=== PATIENT | female | born 1935 | race Caucasian/White ===

== ENCOUNTER 2016-09-26 22:50 | Emergency (ER) | payer MEDICARE, OTHER ==
[~2016-09-26] VITALS: Ht 160 cm; Wt 62.0 kg
[~2016-09-26 22:50] MED LIST: ACIDCAP17 PO; ASPI1TAB7 PO; B COTAB3 PO; BIOT5000 PO; CALC600T10; FOLI400T30 PO; MACR100C PO; TAB-TAB PO; ZOCO40TA PO
[2016-09-26 22:52] VITALS: BP 120/59; PULSE 84; RESP 18; TEMP 99.2; O2SAT 99
--- NOTE | 2016-09-26 23:05 | PD ---
Physical Exam Date Seen by Provider: Sep 26, 2016 Time Seen by Provider: 23:03 Data Data Last Documented VS Vital Signs Date Time Temp Pulse Resp B/P Pulse Ox O2 Delivery O2 Flow Rate FiO2 09/26/16 22:52 99.2 84 18 120/59 99 Room Air [facility] Supervised Visit with ARLENE: No Narrative Course 81 YO F with complaint of bilateral ankle pain. Onset after mechanical fall this afternoon. Patient endorses minimal weightbearing and ambulation since. Vitals reviewed. Patient seen in triage. Awaiting bed placement. Aurora Palacios Sep 26, 2016 23:05
[2016-09-26] MEDS ORDERED: CYAN25002 PO (23:32)
[2016-09-26] MEDS ORDERED: OCUVCAP PO (23:32)
[2016-09-26] MEDS ORDERED: FOLI400T PO (23:32)
[2016-09-26] MEDS ORDERED: CHEL50TA PO (23:32)
[2016-09-26] MEDS ORDERED: MAGN400T24 PO (23:32)
[2016-09-26] MEDS ORDERED: D32000TA PO (23:32)
[2016-09-26] MEDS ORDERED: PROB1CAP12 PO (23:32)
[2016-09-26] MEDS ORDERED: ZOCO40TA PO (23:32)
[2016-09-26] MEDS ORDERED: CALC600T25 PO (23:32)
[2016-09-26] MEDS ORDERED: BIOT50006 PO (23:32)
[2016-09-26] MEDS ORDERED: ASPI81CH CHEW (23:32)
[2016-09-26 23:36] VITALS: BP 129/61; PULSE 81; RESP 16; O2SAT 99
--- NOTE | 2016-09-27 01:21 | RADRPT ---
EXAM DATE/TIME: 09/27/2016 01:08 [facility] COMPARISON: No previous studies available for comparison. INDICATIONS : Pt fell tonight- unable to bear weight to bilateral legs. MEDICAL HISTORY : None. SURGICAL HISTORY : None. ENCOUNTER: Initial ACUITY: 1 day PAIN SCORE: 7/10 LOCATION: Right ankle FINDINGS: 3 views of the right ankle. Diffuse bone demineralization. Small osteophytes at the medial and latera l malleoli. No evidence of fracture. Large plantar calcaneal spur. Small osteophytes at the dorsal as pect of the talonavicular joint. CONCLUSION: Mild arthritic findings of the ankle. Diffuse bone demineralization. No evidence of f racture. Sebastien Buckley MD on September 27, 2016 at 1:12 Board Certified Radiologist. This report was verified electronically.
--- NOTE | 2016-09-27 01:37 | RADRPT ---
EXAM DATE/TIME: 09/27/2016 01:08 [facility] COMPARISON: No previous studies available for comparison. INDICATIONS : Pt fell tonight- unable to bear weight to bilateral legs. MEDICAL HISTORY : None. SURGICAL HISTORY : None. ENCOUNTER: Initial ACUITY: 1 day PAIN SCORE: 7/10 LOCATION: Left ankle FINDINGS: 3 views of the left ankle. Bone alignment within normal limits. No evidence of fracture. Minimal ost eophytes at the medial and lateral malleoli. CONCLUSION: No evidence of fracture. Sebastien Buckley MD on September 27, 2016 at 1:33 Board Certified Radiologist. This report was verified electronically.
--- NOTE | 2016-09-27 01:50 | RADRPT ---
EXAM DATE/TIME: 09/27/2016 01:26 [facility] COMPARISON: No previous studies available for comparison. INDICATIONS : Pt fell tonight- unable to bear weight. MEDICAL HISTORY : None. SURGICAL HISTORY : None. ENCOUNTER: Initial ACUITY: 1 day PAIN SCORE: 8/10 LOCATION: Left Foot FINDINGS: 3 views left foot. Bone alignment within normal limits. No evidence of fracture. Moderate size osteo phytes at the great toe metatarsophalangeal joint. Small plantar calcaneal spur. CONCLUSION: No evidence of fracture. Sebastien Buckley MD on September 27, 2016 at 1:44 Board Certified Radiologist. This report was verified electronically.
[2016-09-27] MEDS ORDERED: ACETAMINOPHEN 325 MG TAB PO ONE (02:00)
--- NOTE | 2016-09-27 02:04 | PD ---
HPI Chief Complaint: Fall Time Seen by Provider: 00:50 Travel History International Travel<30 days: No Contact w/Intl Traveler<30days: No Traveled to known affect area: No History of Present Illness HPI 81-year-old female presents to the emergency department by EMS transport from home after falling while getting out of her bed around 5 PM on Wednesday afternoon. Patient states she had taken a nap and as she got up out of bed her right foot was numb and that she went to put weight on that her foot gave way causing her to lose her balance and fall and she subsequently injured her left ankle at the same time. Patient states she was able to get back into bed her applied ice and due to ongoing pain she decided to have EMS transported to the emergency room for evaluation. Patient denies any other injury. No prior injury of the ankles or feet. Patient states she did not hit her head did not have loss of consciousness did not injure her neck back chest ribs abdomen pelvis or other extremity. Patient states that she has swelling of both ankles and is convinced that she broke both of her ankles. Patient takes no blood thinning agent. PFSH Past Medical History Narrative Medical TIA arthritis dyslipidemia hypertension peripheral neuropathy; tubal ligation cholecystectomy appendectomy tonsillectomy knee surgery; no tobacco use and: Nursing notes reviewed Hx Anticoagulant Therapy: No Arthritis: Yes Anxiety: No Depression: Yes Cancer: No Cardiovascular Problems: No High Cholesterol: Yes Cerebrovascular Accident: Yes (TIA) Diabetes: No Diminished Hearing: No Endocrine: No Glaucoma: No Genitourinary: No Hepatitis: No Hiatal Hernia: No Hypertension: No Immune Disorder: No Implanted Vascular Access Dvce: Yes Musculoskeletal: No Neurologic: No Psychiatric: Yes (nervous breakdown) Reproductive: No Respiratory: No Immunizations Current: Yes Thyroid Disease: No Tetanus Vaccination: < 5 Years ?: Not Menopausal: Yes Tubal Ligation: Yes Past Surgical History Abdominal Surgery: Yes Appendectomy: Yes Arteriovenous Shunt: No Cardiac Surgery: No Cholecystectomy: Yes Ear Surgery: No Endocrine Surgery: No Eye Surgery: Yes (cataract) Genitourinary Surgery: Yes (BLADDER AND UTERINE SUSPENSION) Gynecologic Surgery: Yes (4 children living) Insulin Pump: No Joint Replacement: Yes (knee replacement) Oral Surgery: No Pacemaker: No Thoracic Surgery: Yes (tonsils) Tonsillectomy: Yes Other Surgery: Yes (ton) Social History Alcohol Use: Yes (VERY RARE) Tobacco Use: No Substance Use: No Allergies-Medications (Allergen,Severity, Reaction): Coded Allergies: No Known Allergies (Verified , 09/26/16) Reported Meds & Prescriptions Reported Meds & Active Scripts Active Macrobid (Nitrofurantoin Macrocrystals) 100 Mg Cap 100 Mg PO BID 7 Days Review of Systems Except as stated in HPI: all other systems reviewed are Neg General / Constitutional: No: Fever, Chills HENT: No: Congestion Cardiovascular: No: Chest Pain or Discomfort Respiratory: No: Shortness of Breath Genitourinary: No: Dysuria Musculoskeletal: Positive: Myalgias, Arthralgias, Pain (bilateral ankle pain and left foot pain) Skin: No Rash Neurologic: No: Weakness Psychiatric: No: Anxiety Endocrine: No: Heat Intolerance Hematologic/Lymphatic: No: Easy Bruising Physical Exam Narrative GENERAL: Well-developed well-nourished female in no acute distress no respiratory distress SKIN: Warm and dry. HEAD: Normocephalic. EYES: No scleral icterus. No injection or drainage. NECK: Supple, trachea midline. No JVD or lymphadenopathy. CARDIOVASCULAR: Regular rate and rhythm without murmurs, gallops, or rubs. RESPIRATORY: Breath sounds equal bilaterally. No accessory muscle use. GASTROINTESTINAL: Abdomen soft, non-tender, nondistended. MUSCULOSKELETAL: No cyanosis, or edema. Bilateral mild ankle edema with mild tenderness to direct palpation of the mouth lateral malleoli bilaterally dorsalis pedis pulses 2+ to palpation capillary refill brisk and less than 2 seconds per digit no deformity or point tenderness other than aforementioned. Bilateral lower legs the hip demonstrate intact range of motion. BACK: Nontender without obvious deformity. No CVA tenderness. Data Data Last Documented VS Vital Signs Date Time Temp Pulse Resp B/P Pulse Ox O2 Delivery O2 Flow Rate FiO2 09/26/16 23:36 81 16 129/61 99 Room Air 09/26/16 22:52 99.2 Orders Ankle, Complete ([id number]) (09/27/16 ) Ankle, Complete ([id number]) (09/27/16 ) Foot, Complete ([id number]) (09/27/16 ) [facility] Medical Decision Making Medical Screen Exam Complete: Yes Emergency Medical Condition: Yes Medical Record Reviewed: Yes Interpretation(s) Vital Signs Date Time Temp Pulse Resp B/P Pulse Ox O2 Delivery O2 Flow Rate FiO2 09/26/16 23:36 81 16 129/61 99 Room Air 09/26/16 22:52 99.2 84 18 120/59 99 Room Air Differential Diagnosis Sprain strain contusion fracture subluxation dislocation Narrative Course Imaging studies ordered Imaging of right ankle, left foot left ankle revealed no acute bony injury chronic changes are noted Padded Watson is applied patient is informed of imaging results in stable for outpatient management; Tylenol one dose administered Diagnosis Primary Impression: Right ankle sprain Qualified Code: S93.401A - Sprain of right ankle, unspecified ligament, initial encounter Additional Impression: Left ankle sprain Qualified Code: S93.402A - Sprain of left ankle, unspecified ligament, initial encounter Referrals: Primary Care Physician call for appointment Patient Instructions: General Instructions Additional Instructions: Elevate lower extremities Take as tolerated acetaminophen/Tylenol per package directions Use ice intermittently to areas of soft tissue swelling for first 12-24 hours May use Watson wrap or elastic ankle brace for support as needed Follow-up with your primary care provider Use walker to assist ambulation Return to the emergency department for any concerns or change in condition Med/Other Pt SpecificInfo: No Change to Meds Disposition: 01 DISCHARGE HOME Condition: Stable Mireya Stanton MD Sep 27, 2016 02:04
== END 2016-09-27 02:56 | disposition home or self-care (01) ==
LOC: NEPC 22:50
DX: S93.401A Sprain of unspecified ligament of right ankle, initial encounter (principal); S93.402A Sprain of unspecified ligament of left ankle, initial encounter; W06.XXXA Fall from bed, initial encounter
CPT/HCPCS: 73610; 73630; 99283

== ENCOUNTER 2017-04-23 08:43 | Emergency (ER) | payer MEDICARE, OTHER ==
[~2017-04-23] VITALS: Ht 160 cm; Wt 62.0 kg
[~2017-04-23 08:43] MED LIST changes: -ACIDCAP17 PO; +ASPI-516 CHEW; -ASPI1TAB7 PO; -B COTAB3 PO; -BIOT5000 PO; +BIOT50006 PO; -CALC600T10; +CALC600T5 PO; +CHEL50TA PO; +CYAN25002 PO; +D32000TA PO; +FOLI400T PO; -FOLI400T30 PO; -MACR100C PO; +MAGN400T24 PO; +OCUVCAP PO; +PROB1CAP12 PO; -TAB-TAB PO
[2017-04-23 08:47] VITALS: BP 133/62; PULSE 63; RESP 18; TEMP 97.8; O2SAT 100
[2017-04-23] MEDS ORDERED: SODIUM CHLOR 0.9% 1000 ML INJ 1,000 ML IV ONE (09:03)
--- NOTE | 2017-04-23 09:11 | PD ---
HPI Chief Complaint: Dizziness Time Seen by Provider: 08:54 Travel History International Travel<30 days: No Contact w/Intl Traveler<30days: No Traveled to known affect area: No History of Present Illness HPI The patient is a 81-year-old female who presents emergency department for dizziness and nausea. The patient states her symptoms started Wednesday night, then progressed on . The patient has a history of vertigo and does daily Chaitanya maneuvers, however, states the maneuvers have not helped with her vertigo. The patient states her normal vertigo was rotational like a clot, however, she now states that the rotation is changed axis is now spitting from worse to backwards. She does state it is worse with standing upright, and movement, but can occur at rest with positional changes. It does improve at rest, however, can occur with turning her head left or right. She denies any focal weakness of the upper or lower extremities. She does complain of mild nausea with the vertigo. She does have a history of previous TIA and CVA. She denies drifting to the left or right, however, states she's been unable to get out of bed and ambulate, must hold on objects when ambulating. PFSH Past Medical History Hx Anticoagulant Therapy: No Arthritis: Yes Anxiety: No Depression: Yes Cancer: No Cardiovascular Problems: No High Cholesterol: Yes Cerebrovascular Accident: Yes (TIA) Diabetes: No Diminished Hearing: No Endocrine: No Glaucoma: No Genitourinary: No Hepatitis: No Hiatal Hernia: No Hypertension: No Immune Disorder: No Implanted Vascular Access Dvce: Yes Medical other: Yes (ELEVATED CHOLESTEROL) Musculoskeletal: No Neurologic: No Psychiatric: Yes (nervous breakdown) Reproductive: No Respiratory: No Immunizations Current: Yes Thyroid Disease: No Tetanus Vaccination: < 5 Years Influenza Vaccination: Yes Menopausal: Yes Tubal Ligation: Yes Past Surgical History Abdominal Surgery: Yes Appendectomy: Yes Arteriovenous Shunt: No Cardiac Surgery: No Cholecystectomy: Yes Ear Surgery: No Endocrine Surgery: No Eye Surgery: Yes (cataract) Genitourinary Surgery: Yes (BLADDER AND UTERINE SUSPENSION) Gynecologic Surgery: Yes (4 children living) Insulin Pump: No Joint Replacement: Yes (knee replacement) Oral Surgery: No Pacemaker: No Thoracic Surgery: Yes (tonsils) Tonsillectomy: Yes Other Surgery: Yes (ton) Social History Alcohol Use: Yes (VERY RARE) Tobacco Use: No Substance Use: No Allergies-Medications (Allergen,Severity, Reaction): Coded Allergies: ciprofloxacin (Verified Allergy, Unknown, 04/23/17) nitrofurantoin (Verified Allergy, Unknown, 04/23/17) Reported Meds & Prescriptions Reported Meds & Active Scripts Active Reported Folic Acid 400 Mcg Tab 400 Mcg PO DAILY Zinc (Zinc Gluconate) 50 Mg Tab 1 Tab PO DAILY B-12 (Cyanocobalamin (Vitamin B-12)) 2,500 Mcg Tab.subl 1 Tab PO DAILY Magnesium (Magnesium Oxide) 400 Mg Tablet 250 Mcg PO DAILY Biotin 5,000 Mcg Tab.rapdis 1 Tab PO DAILY Ocuvite Lutein (Multiple Vitamins W/ Minerals) 1 Cap Cap 1 Tab PO DAILY Calcium (Calcium Carbonate) 600 Mg Tab 1 Tab PO DAILY D3 (Cholecalciferol) 2,000 Unit Tab 5,000 Units PO DAILY Acidophilus (Probiotic Product) 1 Cap Cap 240 Mcg PO DAILY Aspirin 81 Mg Chew 81 Mg CHEW DAILY Zocor (Simvastatin) 40 Mg Tab 40 Mg PO DAILY Review of Systems Except as stated in HPI: all other systems reviewed are Neg General / Constitutional: No: Fever Eyes: No: Blurred Vision HENT: Positive: Vertigo, Lightheadedness, No: Headaches Cardiovascular: No: Chest Pain or Discomfort Respiratory: No: Shortness of Breath Gastrointestinal: Positive: Nausea, No: Abdominal Pain Musculoskeletal: No: Weakness Neurologic: Positive: Dizziness, Ataxia (difficulty walking, must hold onto objects), No: Focal Abnormalities Physical Exam Narrative GENERAL: Awake, alert, pleasant 81-year-old female who appears her stated age and is in no acute respiratory distress. SKIN: Focused skin assessment warm/dry. HEAD: Atraumatic. Normocephalic. EYES: Pupils equal and round. 4 mm bilateral and reactive. EOMs are intact. No obvious nystagmus. ENT: No nasal bleeding or discharge. Mucous membranes pink and moist. NECK: Trachea midline. No JVD. CARDIOVASCULAR: Regular rate and rhythm. No murmur appreciated. RESPIRATORY: No accessory muscle use. Clear to auscultation. Breath sounds equal bilaterally. GASTROINTESTINAL: Abdomen soft, non-tender, nondistended. No rebound tenderness. MUSCULOSKELETAL: No obvious deformities. No clubbing. No cyanosis. No edema. NEUROLOGICAL: Awake and alert. No obvious cranial nerve deficits. Motor grossly within normal limits. Normal speech. Finger to nose is normal. Heel-to -bryson is normal. No drift of the upper or lower extremities. PSYCHIATRIC: Appropriate mood and affect; insight and judgment normal. Data Data Last Documented VS Vital Signs Date Time Temp Pulse Resp B/P (MAP) Pulse Ox O2 Delivery O2 Flow Rate FiO2 04/23/17 08:57 65 18 100 Room Air 04/23/17 08:47 97.8 133/62 (85) Orders Orders Electrocardiogram (04/23/17 09:03) Complete Blood Count With Diff (04/23/17 09:03) Comprehensive Metabolic Panel (04/23/17 09:03) Magnesium (Mg) (04/23/17 09:03) Ckmb (Isoenzyme) Profile (04/23/17 09:03) Urinalysis - C+S If Indicated (04/23/17 09:03) Ct Brain W/O Iv Contrast(Rout) (04/23/17 09:03) Ecg Monitoring (04/23/17 09:03) Iv Access Insert/Monitor (04/23/17 09:03) Oximetry (04/23/17 09:03) Meclizine (Antivert) (04/23/17 09:15) Ondansetron Inj (Zofran Inj) (04/23/17 09:15) Sodium Chloride 0.9% Flush (Ns Flush) (04/23/17 09:15) Sodium Chlor 0.9% 1000 Ml Inj (Ns 1000 M (04/23/17 09:03) Diazepam (Valium) (04/23/17 09:15) Mri Brain W/O Contrast (04/23/17 ) Ed Discharge Order (04/23/17 12:22) Labs Laboratory Tests Test 04/23/17 09:10 04/23/17 11:45 White Blood Count 7.3 TH/MM3 Red Blood Count 4.26 MIL/MM3 Hemoglobin 14.2 GM/DL Hematocrit 40.5 % Mean Corpuscular Volume 95.1 FL Mean Corpuscular Hemoglobin 33.3 PG Mean Corpuscular Hemoglobin Concent 35.0 % Red Cell Distribution Width 13.0 % Platelet Count 177 TH/MM3 Mean Platelet Volume 8.8 FL Neutrophils (%) (Auto) 59.0 % Lymphocytes (%) (Auto) 30.9 % Monocytes (%) (Auto) 8.4 % Eosinophils (%) (Auto) 1.2 % Basophils (%) (Auto) 0.5 % Neutrophils # (Auto) 4.3 TH/MM3 Lymphocytes # (Auto) 2.2 TH/MM3 Monocytes # (Auto) 0.6 TH/MM3 Eosinophils # (Auto) 0.1 TH/MM3 Basophils # (Auto) 0.0 TH/MM3 CBC Comment DIFF FINAL Differential Comment Blood Urea Nitrogen 15 MG/DL Creatinine 0.87 MG/DL Random Glucose 90 MG/DL Total Protein 7.7 GM/DL Albumin 3.8 GM/DL Calcium Level 9.2 MG/DL Magnesium Level 2.2 MG/DL Alkaline Phosphatase 63 U/L Aspartate Amino Transf (AST/SGOT) 29 U/L Alanine Aminotransferase (ALT/SGPT) 31 U/L Total Bilirubin 0.5 MG/DL Sodium Level 140 MEQ/L Potassium Level 3.9 MEQ/L Chloride Level 103 MEQ/L Carbon Dioxide Level 30.9 MEQ/L Anion Gap 6 MEQ/L Estimat Glomerular Filtration Rate 62 ML/MIN Total Creatine Kinase 91 U/L Urine Color LIGHT-YELLOW Urine Turbidity CLEAR Urine pH 6.5 Urine Specific [place] 1.006 Urine Protein NEG mg/dL Urine Glucose (UA) NEG mg/dL Urine Ketones TRACE mg/dL Urine Occult Blood NEG Urine Nitrite NEG Urine Bilirubin NEG Urine Urobilinogen LESS THAN 2.0 MG/DL Urine Leukocyte Esterase TRACE Urine RBC LESS THAN 1 /hpf Urine WBC 2 /hpf Urine Squamous Epithelial Cells 3 /hpf Urine Mucus FEW /lpf Microscopic Urinalysis Comment CULT NOT INDICATED MDM Medical Decision Making Medical Screen Exam Complete: Yes Emergency Medical Condition: Yes Medical Record Reviewed: Yes Interpretation(s) EKG reveals normal sinus rhythm with a rate of 63. No ischemic changes or ectopy noted. Last Impressions Head CT 04/23/17 0903 Signed Impressions: Service Date/Time: Sunday, April 23, 2017 09:09 - CONCLUSION: Moderate periventricular matter changes, negative for acute process. Maynor Keita MD FACR Brain MRI 04/23/17 0000 Signed Impressions: Service Date/Time: Sunday, April 23, 2017 10:37 - CONCLUSION: Moderate chronic appearing white matter signal changes. No evidence of acute intracranial process. Stan Pierson MD Laboratory Tests Test 04/23/17 09:10 04/23/17 11:45 White Blood Count 7.3 TH/MM3 Red Blood Count 4.26 MIL/MM3 Hemoglobin 14.2 GM/DL Hematocrit 40.5 % Mean Corpuscular Volume 95.1 FL Mean Corpuscular Hemoglobin 33.3 PG Mean Corpuscular Hemoglobin Concent 35.0 % Red Cell Distribution Width 13.0 % Platelet Count 177 TH/MM3 Mean Platelet Volume 8.8 FL Neutrophils (%) (Auto) 59.0 % Lymphocytes (%) (Auto) 30.9 % Monocytes (%) (Auto) 8.4 % Eosinophils (%) (Auto) 1.2 % Basophils (%) (Auto) 0.5 % Neutrophils # (Auto) 4.3 TH/MM3 Lymphocytes # (Auto) 2.2 TH/MM3 Monocytes # (Auto) 0.6 TH/MM3 Eosinophils # (Auto) 0.1 TH/MM3 Basophils # (Auto) 0.0 TH/MM3 CBC Comment DIFF FINAL Differential Comment Blood Urea Nitrogen 15 MG/DL Creatinine 0.87 MG/DL Random Glucose 90 MG/DL Total Protein 7.7 GM/DL Albumin 3.8 GM/DL Calcium Level 9.2 MG/DL Magnesium Level 2.2 MG/DL Alkaline Phosphatase 63 U/L Aspartate Amino Transf (AST/SGOT) 29 U/L Alanine Aminotransferase (ALT/SGPT) 31 U/L Total Bilirubin 0.5 MG/DL Sodium Level 140 MEQ/L Potassium Level 3.9 MEQ/L Chloride Level 103 MEQ/L Carbon Dioxide Level 30.9 MEQ/L Anion Gap 6 MEQ/L Estimat Glomerular Filtration Rate 62 ML/MIN Total Creatine Kinase 91 U/L Urine Color LIGHT-YELLOW Urine Turbidity CLEAR Urine pH 6.5 Urine Specific [place] 1.006 Urine Protein NEG mg/dL Urine Glucose (UA) NEG mg/dL Urine Ketones TRACE mg/dL Urine Occult Blood NEG Urine Nitrite NEG Urine Bilirubin NEG Urine Urobilinogen LESS THAN 2.0 MG/DL Urine Leukocyte Esterase TRACE Urine RBC LESS THAN 1 /hpf Urine WBC 2 /hpf Urine Squamous Epithelial Cells 3 /hpf Urine Mucus FEW /lpf Microscopic Urinalysis Comment CULT NOT INDICATED Differential Diagnosis Differential diagnosis includes vertigo, hyponatremia, CVA, TIA, intracranial hemorrhage, cerebellar infarct. Narrative Course IV was established, labs are drawn and sent, and the patient was placed on cardiac telemetry monitoring and continuous pulse oximetry monitoring. EKG was ordered and interpreted. CT the brain was ordered to rule out intracranial hemorrhage. MRI of the brain was ordered to evaluate for possible cerebellar infarct. CT the brain was unremarkable. Laboratory evaluation was unremarkable. MRI reveals chronic white matter changes, but no acute infarct. The patient was reevaluated at 12:15 PM, her vertigo has significantly improved with meclizine and Valium. I do discussion with the patient regarding discharge home versus staying, she feels well enough to go home. She will be discharged with her , I will write for meclizine and Valium as needed. She is advised to follow-up with her primary physician and return if symptoms worsen or progress. Diagnosis Primary Impression: Vertigo Patient Instructions: General Instructions Additional Instructions: Medications as directed. Follow-up with her primary physician. Return if symptoms worsen or progress. Please provide the patient copy of her CT results , MRI results, and lab results at discharge. Med/Other Pt SpecificInfo: Prescription(s) given Scripts Diazepam (Valium) 2 Mg Tab 2 MG PO TID Y for VERTIGO, #10 TAB 0 Refills Prov: Ray Blil MD 04/23/17 Meclizine (Meclizine) 25 Mg Tab 25 MG PO TID Y for VERTIGO, #15 TAB 0 Refills Prov: Ray Bill MD 04/23/17 Disposition: 01 DISCHARGE HOME Condition: Stable Ray Bill MD Apr 23, 2017 09:11
[2017-04-23] MEDS ORDERED: ONDANSETRON HCL 4 MG/2 ML VIAL IVP ONE (09:15)
[2017-04-23] MEDS ORDERED: DIAZEPAM 5 MG TAB PO ONE (09:15)
[2017-04-23] MEDS ORDERED: MECLIZINE HCL 25 MG TAB PO ONE (09:15)
[2017-04-23] MEDS ORDERED: SODIUM CHLORIDE 0.9% FLUSH 10 ML FLUSH IVF PRN (09:15)
--- NOTE | 2017-04-23 09:30 | RADRPT ---
EXAM DATE/TIME: 04/23/2017 09:09 [facility] COMPARISON: CT BRAIN W/O CONTRAST, September 22, 2014, 12:50. INDICATIONS : Dizziness and Vertigo since with nausea and vomiting RADIATION DOSE: 56.35 CTDIvol (mGy) MEDICAL HISTORY : Cerebrovascular disease. Vertigo SURGICAL HISTORY : Appendectomy. Cholecystectomy.Tubal ligation. ENCOUNTER: Initial ACUITY: 2 days PAIN SCALE: 0/10 LOCATION: cranial TECHNIQUE: Multiple contiguous axial images were obtained of the head. Using automated exposure control and adj ustment of the mA and/or kV according to patient size, radiation dose was kept as low as reasonably a chievable to obtain optimal diagnostic quality images. DICOM format image data is available electro nically for review and comparison. FINDINGS: CEREBRUM: The ventricles are normal for age. No evidence of midline shift, mass lesion, hemorrhage or acute in farction. No extra-axial fluid collections are seen. Moderate periventricular white matter changes are noted. POSTERIOR FOSSA: The cerebellum and brainstem are intact. The 4th ventricle is midline. The cerebellopontine angle i s unremarkable. EXTRACRANIAL: The visualized portion of the orbits is intact. SKULL: The calvaria is intact. No evidence of skull fracture. CONCLUSION: Moderate periventricular matter changes, negative for acute process. Maynor Keita MD FACR on April 23, 2017 at 9:27 Board Certified Radiologist. This report was verified electronically.
[2017-04-23 09:31] LABS: AUTOMATED NEUTROPHIL # 4.3 TH/MM3 (1.8-7.7); BASOPHIL % 0.5 % (0.0-2.0); EOSINOPHIL # 0.1 TH/MM3 (0-0.4); EOSINOPHIL % 1.2 % (0.0-4.0); HEMATOCRIT 40.5 % (35.0-46.0); HEMOGLOBIN 14.2 GM/DL (11.6-15.3); LYMPH % 30.9 % (9.0-44.0); LYMPHOCYTE # 2.2 TH/MM3 (1.0-4.8); MEAN CELL VOLUME 95.1 FL (80.0-100.0); MEAN CORPUSCULAR HEMOGLOBIN 33.3 PG (27.0-34.0); MEAN PLATELET VOLUME 8.8 FL (7.0-11.0); MONO % 8.4 % (0.0-8.0); MONOCYTE # 0.6 TH/MM3 (0-0.9); PLATELET COUNT 177 TH/MM3 (150-450); RED BLOOD COUNT 4.26 MIL/MM3 (4.00-5.30); WHITE BLOOD COUNT 7.3 TH/MM3 (4.0-11.0)
[2017-04-23 09:46] LABS: ALBUMIN 3.8 GM/DL (3.4-5.0); ALT (GPT) 31 U/L (10-53); AST (GOT) 29 U/L (15-37); BICARBONATE 30.9 MEQ/L (21.0-32.0); BLOOD UREA NITROGEN 15 MG/DL (7-18); CALCIUM 9.2 MG/DL (8.5-10.1); CHLORIDE 103 MEQ/L (98-107); CREATININE 0.87 MG/DL (0.50-1.00); GLOMERULAR FILTRATION RATE 62 ML/MIN (>89); GLUCOSE,RANDOM 90 MG/DL (74-106); MAGNESIUM 2.2 MG/DL (1.5-2.5); SODIUM (NA) 140 MEQ/L (136-145)
[2017-04-23 09:49] LABS: ALKALINE PHOSPHATASE 63 U/L (45-117); TOTAL BILIRUBIN ADULT 0.5 MG/DL (0.2-1.0); TOTAL PROTEIN 7.7 GM/DL (6.4-8.2)
--- NOTE | 2017-04-23 11:50 | RADRPT ---
EXAM DATE/TIME: 04/23/2017 10:37 [facility] COMPARISON: No previous studies available for comparison. INDICATIONS : Vertigo. MEDICAL HISTORY : Arthritis. Hypercholesterolemia. SURGICAL HISTORY : Appendectomy. Cholecystectomy. Total knee replacement, right. tonsilectomy ENCOUNTER: Subsequent ACUITY: 2 day PAIN SCORE: 0/10 LOCATION: cranial TECHNIQUE: Multiplanar, multisequence MRI of the brain was performed without contrast. FINDINGS: CEREBRUM: The ventricles are normal for age. No evidence of midline shift, mass lesion, hemorrhage or acute in farction. No extraaxial fluid collections are seen. The pituitary gland and suprasellar cistern are normal in configuration. WHITE MATTER: Fairly symmetric moderate T2 prolongation in the periventricular and subcortical white matter, likely moderate microvascular ischemic in etiology. Some similar change in the central brainstem. POSTERIOR FOSSA: The cerebellum and brainstem are intact. The 4th ventricle is midline. The cerebellopontine angle is unremarkable. The cerebellar tonsils are normal in position. DIFFUSION IMAGING: No focal areas of restricted diffusion are seen. No evidence of acute infarction. EXTRACRANIAL: The visualized portions of the orbits and paranasal sinuses are unremarkable. CONCLUSION: Moderate chronic appearing white matter signal changes. No evidence of acute intracranial process. Stan Pierson MD on April 23, 2017 at 11:45 Board Certified Radiologist. This report was verified electronically.
[2017-04-23 12:10] LABS: BILIRUBIN, URINE NEG (NEG); BLOOD, URINE NEG (NEG); GLUCOSE,URINE NEG (NEG); KETONE, URINE TRACE mg/dL (NEG); MUCUS URINE FEW /lpf (OCC); NITRITE,URINE NEG (NEG); PH, URINE 6.5 (5.0-8.5); SQUAMOUS EPITHELIAL CELL URINE 3 /hpf (0-5); URINE COLOR LIGHT-YELLOW (YELLW/STRAW); URINE LEUKOCYTE ESTERASE TRACE (NEG)
[2017-04-23] MEDS ORDERED: DIAZ2 PO (12:30)
[2017-04-23] MEDS ORDERED: MECL-62 PO (12:30)
--- NOTE | 2017-04-24 15:13 | EKG ---
Date Performed: 04/23/2017 Time Performed: 09:31:49 PTAGE: 81 years EKG: Sinus rhythm NORMAL ECG PREVIOUS TRACING : 06/26/2015 12.17 Since previous tracing, no significant change noted DOCTOR: Ivan Boss Interpretating Date/Time 04/24/2017 15:12:24
== END 2017-04-23 14:36 | disposition home or self-care (01) ==
LOC: NEPE 08:43
DX: R42 Dizziness and giddiness (principal); E78.00 Pure hypercholesterolemia, unspecified; Z79.899 Other long term (current) drug therapy
CPT/HCPCS: 70450; 70551; 80053; 81001; 82550; 83735; 85025; 93005; 96374; 99285; J2405; J7030